=== PATIENT | female | born 1960 | race Caucasian/White ===

== ENCOUNTER 2018-08-11 10:51 | Outpatient (CLI) | payer BC | END 2018-08-11 10:52 | disposition home or self-care (01) | LOC: BICMAMMO 10:51 | PROVIDERS: ATTEND Internal Medicine | DX: Z13.820 Encounter for screening for osteoporosis (principal); M85.852 Other specified disorders of bone density and structure, left thigh | CPT/HCPCS: 77080 ==

== ENCOUNTER 2019-07-09 14:14 | Outpatient (CLI) | payer BC ==
--- NOTE | 2019-07-09 17:09 | HP ---
HISTORY OF PRESENT ILLNESS: Ms. Akilah Roca is a very pleasant 58-year-old, who presents to [facility] for evaluation of a nonhealing surgical wound of the right lower abdomen subsequent to abdominoplasty in January of this year. The patient states that for an infectious process associated with the wound, the wound was opened in February. She states that in April, the wound was closed with sutures. She states that for a recurrent infectious process associated with the wound earlier this month, she was seen by Dr. Moseley and subsequently referred to the [facility] for the initiation of negative pressure therapy. The patient states that the wound was opened 3 days ago and cultures obtained. The patient states that she has been seen by Dr. Harshal Sutton of Infectious Diseases, who will be initiating antimicrobial therapy. PAST MEDICAL HISTORY: Rheumatoid arthritis. PAST SURGICAL HISTORY: 1. Abdominoplasty. 2. . 3. Gastric sleeve. 4. Cholecystectomy. 5. Right foot surgery with hardware. 6. Left rotator cuff surgery. 7. Neck surgery. MEDICATIONS: 1. Pristiq. 2. Leflunomide. 3. Montelukast. 4. Protonix. 5. Bupropion. 6. Aripiprazole. 7. Nuvigil. 8. Lunesta. 9. Karyn. 10. ProAir inhaler. 11. Bariatric vitamin. ALLERGIES: NO KNOWN DIAGNOSED ALLERGIES. SOCIAL HISTORY: Social history is significant for a remote history of tobacco use of less than 1 pack of cigarettes per day for 10 years. The patient admits to the rare consumption of alcohol. FAMILY HISTORY: Family history is negative for diabetes mellitus or coronary artery disease. PHYSICAL EXAMINATION: VITAL SIGNS: Temperature 98.0, pulse 91, respirations 19, and blood pressure 140/88. GENERAL: A 58-year-old female, lying on table in examination room, in no acute distress. HEENT: Normocephalic and atraumatic. NECK: No nuchal rigidity. CHEST: Clear to auscultation. CV: Regular rate and rhythm. ABDOMEN: Soft. A wound of the right lower abdomen is present, which measures approximately 3.5 x 5.6 cm. Undermining associated with the wound is approximately 1.5 cm in length. Granulation tissue is present within the wound margins. No purulent drainage is associated with the wound. No erythema of the skin surrounding the wound is present. No maceration of the skin of the periwound is noted. EXTREMITIES: No clubbing or cyanosis. NEUROLOGIC: Grossly nonfocal. ASSESSMENT AND PLAN: 1. Nonhealing surgical wound of right lower abdomen subsequent to abdominoplasty in January of this year. Negative pressure therapy will be initiated today with dressing changes of the wound VAC 2 times per week here in the [facility]ound Center. As stated above, the patient will receive antimicrobial therapy as per Dr. Harshal Sutton of Infectious Diseases. I will see Ms. Roca again in 2 weeks. The patient understands and is in agreement with the preceding treatment plan. 2. Rheumatoid arthritis. Job ID: [id number]
== END 2019-07-09 14:15 | disposition home or self-care (01) ==
LOC: WCC 14:14
PROVIDERS: ATTEND Family Medicine
DX: T80.89XD Other complications following infusion, transfusion and therapeutic injection, subsequent encounter (principal); M06.9 Rheumatoid arthritis, unspecified
CPT/HCPCS: 97605; 99203; G0463

== ENCOUNTER 2019-07-13 14:37 | Outpatient (CLI) | payer BC ==
[2019-07-13] MEDS ORDERED: Sodium Chloride 0.9% 15 ML NEB ONE (15:00)
== END 2019-07-13 14:38 | disposition home or self-care (01) ==
LOC: WCC 14:37
PROVIDERS: ATTEND Family Medicine
DX: T81.89XD Other complications of procedures, not elsewhere classified, subsequent encounter (principal)
CPT/HCPCS: 97605; A4218

== ENCOUNTER 2019-07-16 15:58 | Outpatient (CLI) | payer BC ==
[~2019-07-16 15:58] MED LIST: Sodium Chloride 0.9% 15 ML NEB ONE
== END 2019-07-16 15:59 | disposition home or self-care (01) ==
LOC: WCC 15:58
PROVIDERS: ATTEND Family Medicine
DX: T81.89XD Other complications of procedures, not elsewhere classified, subsequent encounter (principal)
CPT/HCPCS: 97605; A4218

== ENCOUNTER 2019-07-20 13:31 | Outpatient (CLI) | payer BC | END 2019-07-20 13:32 | disposition home or self-care (01) | LOC: WCC 13:31 | PROVIDERS: ATTEND Family Medicine | DX: T81.89XD Other complications of procedures, not elsewhere classified, subsequent encounter (principal) | CPT/HCPCS: 97605; A4218 ==

== ENCOUNTER 2019-07-23 13:37 | Outpatient (CLI) | payer BC ==
--- NOTE | 2019-07-23 15:09 | PRG ---
DATE OF SERVICE: 07/23/2019 HISTORY: Ms. Akilah Roca is a very pleasant 58-year-old, who presents to the [facility] for evaluation of a nonhealing surgical wound of the right lower abdomen subsequent to abdominoplasty in January of this year. The patient stated that for an infectious process associated with the wound, the wound was opened in February. She states that in April, the wound was closed with sutures. She states that for an infectious process associated with the wound earlier this month, she was seen by Dr. Moseley and subsequently referred to the [facility] Center for the initiation of negative pressure therapy. The patient stated that the wound was open three days prior to the patient's initial visit to the [facility]ound Center and cultures obtained. The patient stated that she has been seen by Dr. Harshal Sutton of Infectious Diseases for the initiation of antimicrobial therapy. PHYSICAL EXAMINATION: VITAL SIGNS: Temperature 98.0, pulse 74, and blood pressure 124/71. ABDOMEN: Soft. A wound of the right lower quadrant is present, which measures approximately 2.8 x 3.8 cm. The dimensions of the wound at the time of the patient's visit on 07/09/2019 were approximately 3.5 x 5.6 cm. Undermining associated with the wound at the superior aspect of the wound is approximately 1.5 cm in length. Granulation tissue is present within the wound margins. No purulent drainage is associated with the wound. No erythema of the skin surrounding the wound is present. No maceration of the skin of the periwound is noted. ASSESSMENT AND PLAN: 1. Nonhealing surgical wound of right lower abdomen subsequent to abdominal plasty in January of this year. Negative pressure therapy will be continued with dressing changes of the wound VAC here in the Wound Center. I will see Ms. Roca again in 2 weeks. 2. Rheumatoid arthritis. Job ID: [id number]
== END 2019-07-23 13:38 | disposition home or self-care (01) ==
LOC: WCC 13:37
PROVIDERS: ATTEND Family Medicine
DX: T81.89XD Other complications of procedures, not elsewhere classified, subsequent encounter (principal); M06.9 Rheumatoid arthritis, unspecified
CPT/HCPCS: 97605; A4218

== ENCOUNTER 2019-07-28 10:08 | Outpatient (CLI) | payer BC | END 2019-07-28 10:09 | disposition home or self-care (01) | LOC: WCC 10:08 | PROVIDERS: ATTEND Family Medicine | DX: T81.89XD Other complications of procedures, not elsewhere classified, subsequent encounter (principal) | CPT/HCPCS: 97605; A4218 ==

== ENCOUNTER 2019-07-30 13:26 | Outpatient (CLI) | payer BC | END 2019-07-30 13:27 | disposition home or self-care (01) | LOC: WCC 13:26 | PROVIDERS: ATTEND Family Medicine | DX: T81.89XD Other complications of procedures, not elsewhere classified, subsequent encounter (principal) | CPT/HCPCS: 97605; A4218 ==

== ENCOUNTER 2019-08-03 11:35 | Outpatient (CLI) | payer BC | END 2019-08-03 11:36 | disposition home or self-care (01) | LOC: WCC 11:35 | PROVIDERS: ATTEND Family Medicine | DX: T81.89XD Other complications of procedures, not elsewhere classified, subsequent encounter (principal) | CPT/HCPCS: 97605 ==

== ENCOUNTER 2019-08-06 13:40 | Outpatient (CLI) | payer BC ==
--- NOTE | 2019-08-06 15:04 | PRG ---
DATE OF SERVICE: 08/06/2019 HISTORY: Ms. Akilah Roca is a very pleasant 58-year-old, who presents to the [facility] for evaluation of a nonhealing surgical wound of the right lower abdomen subsequent to abdominoplasty in January of this year. The patient stated that for an infectious process associated with the wound, the wound was opened in February. She states that in April, the wound was closed with sutures. She stated that for an infectious process associated with the wound earlier this month, she was seen by Dr. Moseley and subsequently referred to the [facility] for the initiation of negative pressure therapy. The patient stated that the wound was opened 3 days prior to the patient's initial visit to the [facility]ound Center and cultures obtained. The patient previously stated that she has been seen by Dr. Harshal Sutton of Infectious Diseases for the initiation of antimicrobial therapy. The patient states that since her visit to the [facility] Center on 07/23/2019, she has been seen by Dr. Moseley and the wound open further in his office. PHYSICAL EXAMINATION: VITAL SIGNS: Temperature 98.3, pulse 84, respirations 16, and blood pressure 116/74. ABDOMEN: Soft. A wound of the right lower quadrant is present, which measures approximately 4.2 x 3.9 cm. The dimensions of the wound at the time of the patient's visit on 07/23/2019 were approximately 2.8 x 3.8 cm. Granulation tissue is present within the wound margins. No purulent drainage is associated with the wound. No erythema of the skin surrounding the wound is present. No maceration of the skin of the periwound is noted. No significant undermining is associated with the wound on exam today. ASSESSMENT AND PLAN: 1. Nonhealing surgical wound of right lower abdomen subsequent to abdominoplasty in January of this year. Negative pressure therapy will be continued with dressing changes of the wound VAC here in the Wound Center. I will see Ms. Roca again after she is seen by Plastic Surgery. 2. Rheumatoid arthritis. Job ID: [id number]
== END 2019-08-06 13:41 | disposition home or self-care (01) ==
LOC: WCC 13:40
PROVIDERS: ATTEND Family Medicine
DX: T81.89XD Other complications of procedures, not elsewhere classified, subsequent encounter (principal); M06.9 Rheumatoid arthritis, unspecified
CPT/HCPCS: A4218

== ENCOUNTER 2019-08-10 14:46 | Outpatient (CLI) | payer BC ==
[2019-08-10] MEDS ORDERED: Sodium Chloride 0.9% 15 ML NEB ONE (15:00)
== END 2019-08-10 14:47 | disposition home or self-care (01) ==
LOC: WCC 14:46
PROVIDERS: ATTEND Family Medicine
DX: T81.89XD Other complications of procedures, not elsewhere classified, subsequent encounter (principal)
CPT/HCPCS: A4218

== ENCOUNTER 2019-08-13 13:41 | Outpatient (CLI) | payer BC | END 2019-08-13 13:42 | disposition home or self-care (01) | LOC: WCC 13:41 | PROVIDERS: ATTEND Family Medicine | DX: T81.89XD Other complications of procedures, not elsewhere classified, subsequent encounter (principal) | CPT/HCPCS: 97605; A4218 ==

== ENCOUNTER 2019-08-17 15:09 | Outpatient (CLI) | payer BC ==
[2019-08-17] MEDS ORDERED: Sodium Chloride 0.9% 15 ML NEB ONE (17:05)
== END 2019-08-17 15:10 | disposition home or self-care (01) ==
LOC: WCC 15:09
PROVIDERS: ATTEND Family Medicine
DX: T81.89XD Other complications of procedures, not elsewhere classified, subsequent encounter (principal)
CPT/HCPCS: 97605; A4218

== ENCOUNTER 2019-08-20 14:45 | Outpatient (CLI) | payer BC ==
--- NOTE | 2019-08-20 14:35 | PRG ---
DATE OF SERVICE: 08/20/2019 HISTORY: Ms. Akilah Roca is a very pleasant 58-year-old, who presents to the [facility] for evaluation of a nonhealing surgical wound of the right lower abdomen subsequent to abdominoplasty in January of this year. The patient stated that for an infectious process associated with the wound, the wound was opened in February. She states that in April, the wound was closed with sutures. She stated that for an infectious process associated with the wound earlier this month, she was seen by Dr. Moseley and subsequently referred to the [facility] for the initiation of negative pressure therapy. The patient stated that the wound was opened 3 days prior to the patient's initial visit to the Wound Center and cultures obtained. The patient previously stated that she has been seen by Dr. Harshal uStton of Infectious Diseases for the initiation of antimicrobial therapy. The patient stated that after her visit to the [facility]ound Center on 07/23/2019, she was seen by Dr. Moseley and the wound opened further in his office. PHYSICAL EXAMINATION: VITAL SIGNS: Temperature 98.2, pulse 80, respirations 19, and blood pressure 110/70. ABDOMEN: Soft. A wound of the right lower quadrant is present, which measures approximately 2.9 x 2.2 cm. The dimensions of the wound at the time of the patient's visit on 08/06/2019 were approximately 4.2 x 3.9 cm. Granulation tissue is present within the wound margins. No purulent drainage is associated with the wound. No erythema of the skin surrounding the wound is present. No maceration of the skin of the periwound is noted. No significant undermining is associated with the wound on today's exam. ASSESSMENT AND PLAN: 1. Nonhealing surgical wound of right lower abdomen subsequent to abdominoplasty in January of this year. Negative pressure therapy will be continued with dressing changes of the wound VAC here in the Wound Center. The patient has an appointment with Dr. Moseley in 1 week. I will see Ms. Roca again as needed after she is seen by Plastic Surgery. 2. Rheumatoid arthritis. Job ID: [id number]
== END 2019-08-20 14:46 | disposition home or self-care (01) ==
LOC: WCC 14:45
PROVIDERS: ATTEND Family Medicine
DX: T81.89XD Other complications of procedures, not elsewhere classified, subsequent encounter (principal); M06.9 Rheumatoid arthritis, unspecified
CPT/HCPCS: A4218

== ENCOUNTER 2019-08-24 14:23 | Outpatient (CLI) | payer BC ==
[2019-08-24] MEDS ORDERED: Sodium Chloride 0.9% 15 ML NEB ONE (17:06)
== END 2019-08-24 14:24 | disposition home or self-care (01) ==
LOC: WCC 14:23
PROVIDERS: ATTEND Family Medicine
DX: T81.89XD Other complications of procedures, not elsewhere classified, subsequent encounter (principal)
CPT/HCPCS: 97605; A4218

== ENCOUNTER 2019-08-27 10:54 | Outpatient (CLI) | payer BC ==
[2019-08-27] MEDS ORDERED: Sodium Chloride 0.9% 15 ML NEB ONE (15:00)
== END 2019-08-27 10:55 | disposition home or self-care (01) ==
LOC: WCC 10:54
PROVIDERS: ATTEND Family Medicine
DX: T81.89XD Other complications of procedures, not elsewhere classified, subsequent encounter (principal)
CPT/HCPCS: 97605; A4218

== ENCOUNTER 2019-08-28 13:52 | Outpatient (CLI) | payer BC ==
[2019-08-28] MEDS ORDERED: Sodium Chloride 0.9% 15 ML NEB ONE (15:00)
== END 2019-08-28 13:53 | disposition home or self-care (01) ==
LOC: WCC 13:52
PROVIDERS: ATTEND Family Medicine
DX: T81.89XD Other complications of procedures, not elsewhere classified, subsequent encounter (principal)
CPT/HCPCS: A4218

== ENCOUNTER 2019-09-02 08:29 | Outpatient (CLI) | payer BC ==
[2019-09-02] MEDS ORDERED: Sodium Chloride 0.9% 15 ML NEB ONE (15:56)
== END 2019-09-02 08:30 | disposition home or self-care (01) ==
LOC: WCC 08:29
PROVIDERS: ATTEND Family Medicine
DX: T81.89XD Other complications of procedures, not elsewhere classified, subsequent encounter (principal)
CPT/HCPCS: A4218

== ENCOUNTER 2019-09-07 11:42 | Outpatient (CLI) | payer BC ==
--- NOTE | 2019-09-07 16:40 | PRG ---
DATE OF SERVICE: 09/07/2019 HISTORY: Ms. Akilah Roca is a very pleasant 58-year-old, who presents to the [facility] for evaluation of a nonhealing surgical wound of the right lower abdomen subsequent to abdominoplasty in January of this year. The patient stated that for an infectious process associated with the wound, the wound was opened in February. She stated that in April, the wound was closed with sutures. She stated that for an infectious process associated with the wound in July of this year, she was seen by Dr. Moseley and subsequently referred to the [facility] Center for the initiation of negative pressure therapy. The patient stated that the wound was open 3 days prior to the patient's initial visit to the Wound Center and cultures obtained. The patient has been seen by Dr. Harshal Sutton of Infectious Diseases for the initiation of antimicrobial therapy. The patient stated that after her visit to the [facility]ound Center on 07/23/2019, she was seen by Dr. Moseley and the wound opened further in his office. 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 The patient states that she has been given the choice of whether or not to begin treatment for Mycobacterium fortuitum. PHYSICAL EXAMINATION: VITAL SIGNS: Temperature 98.2, pulse 85, respirations 17, and blood pressure 121/80. ABDOMEN: Soft. A wound of the right lower quadrant is present, which measures approximately 2.2 x 1.4 cm. The dimensions of the wound at the time of the patient's visit on 08/20/2019 were approximately 2.9 x 2.2 cm. Granulation tissue was present within the wound margins. No purulent drainage is associated with the wound. No erythema of the skin surrounding the wound is present. No maceration of the skin of the periwound is noted. No significant undermining is associated with the wound on exam today. ASSESSMENT AND PLAN: 1. Nonhealing surgical wound of right lower abdomen subsequent to abdominoplasty in January of this year. The patient has completed a course of negative pressure therapy and dressing changes of Promogran are to be performed every other day after cleansing and irrigation. The patient will be performing her own dressing changes. I will see Ms. Roca again in 2 weeks. 2. Rheumatoid arthritis. Job ID: [id number]
[2019-09-07] MEDS ORDERED: Sodium Chloride 0.9% 15 ML NEB ONE (18:00)
== END 2019-09-07 11:43 | disposition home or self-care (01) ==
LOC: WCC 11:42
PROVIDERS: ATTEND Family Medicine
DX: T81.89XD Other complications of procedures, not elsewhere classified, subsequent encounter (principal); M06.9 Rheumatoid arthritis, unspecified
CPT/HCPCS: 97602; A4218

== ENCOUNTER 2019-09-21 14:09 | Outpatient (CLI) | payer BC ==
[2019-09-21] MEDS ORDERED: Sodium Chloride 0.9% 15 ML NEB ONE (15:00)
--- NOTE | 2019-09-22 08:52 | PRG ---
DATE OF SERVICE: 09/21/2019 HISTORY: Ms. Akilah Roca is a very pleasant 59-year-old, who presents to the [facility] for evaluation of a nonhealing surgical wound of the right lower abdomen subsequent to abdominoplasty in January of this year. The patient stated that for an infectious process associated with the wound, the wound was opened in February. She stated that in April, the wound was closed with sutures. She stated that for an infectious process associated with the wound in July of this year, she was seen by Dr. Moseley and subsequently referred to the [facility] Center for the initiation of negative pressure therapy. The patient stated that the wound was opened 3 days prior to the patient's initial visit to the Wound Center and cultures obtained. The patient has been seen by Dr. Harshal Sutton of Infectious Diseases for the initiation of antimicrobial therapy. The patient stated that after her visit to the Wound Center on 07/23/2019, she was seen by Dr. Moseley and the wound opened further in his office. 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 The patient previously stated that she had been given the choice of whether or not to begin treatment for Mycobacterium fortuitum. PHYSICAL EXAMINATION: VITAL SIGNS: Temperature 98.0, pulse 78, respirations 18, and blood pressure 137/83. ABDOMEN: Soft. A wound of the right lower quadrant is present, which measures approximately 1.2 x 0.6 cm. The dimensions of the wound at the time of the patient's visit on 09/07/2019 were approximately 2.2 x 1.4 cm. Granulation tissue is present within the wound margins. No purulent drainage is associated with the wound. No erythema of the skin surrounding the wound is present. No maceration of the skin of the periwound is noted. No undermining is associated with the wound on exam today. ASSESSMENT AND PLAN: 1. Nonhealing surgical wound of right lower abdomen subsequent to abdominoplasty in January of this year. The patient has completed a course of negative pressure therapy, and dressing changes of Promogran will be continued every other day or alternatively three times per week after cleansing and irrigation. The patient will continue to perform her own dressing changes. The patient states she has a followup appointment with Dr. Moseley in 1 week. The patient states that she will schedule an appointment with Dr. Sutton after she returns from her out of the town trip, which will be completed in approximately 3 weeks. The patient's wound has almost healed completely, and Ms. Roca will be discharged from clinic today with followup on a p.r.n. basis. 2. Rheumatoid arthritis. Job ID: [id number]
== END 2019-09-21 14:10 | disposition home or self-care (01) ==
LOC: WCC 14:09
PROVIDERS: ATTEND Family Medicine
DX: T81.89XD Other complications of procedures, not elsewhere classified, subsequent encounter (principal); M06.9 Rheumatoid arthritis, unspecified
CPT/HCPCS: A4218